=== PATIENT | male | born 1970 ===

== ENCOUNTER 2018-05-07 20:59 | Emergency (ER) | payer SELFPAY ==
[2018-05-07] MEDS ORDERED: SODIUM CHLORIDE 0.9% 500 ML IV ONE (21:36)
[2018-05-07] MEDS ORDERED: ONDANSETRON HCL IV 4 MG/2 ML VIAL IV ONE (21:36)
[2018-05-07] MEDS ORDERED: SUCRALFATE 1 G/10 ML UD PO ONE (21:37)
--- NOTE | 2018-05-07 21:43 | Emergency Department Record ---
History of Present Illness - General Chief Complaint: Abdominal Pain Stated Complaint: ABDOMINAL PAIN Time Seen by Provider: 05/07/18 21:34 Source: Patient Mode of Arrival: Ambulatory Limitations: No limitations - History of Present Illness Initial Comments: The patient is here due to a sharp stabbing epigastric AP for the past 2 hours. He did vomit after the onset of the pain. There has been no Cp, SOB, TAMICA, back pain or dysuria. The patient states he has had similar issues in the past and did go to the ER but was discharged and not told of any diagnosis. MD Complaint: Abdominal pain Onset/Timin -: Hour(s) Migration to: Epigastric Severity: Moderate Severity scale (1-10): 7 Associated Symptoms: Denies other symptoms - Related Data Allergies Allergy/AdvReac Type Severity Reaction Status Date / Time No Known Drug Allergies Allergy Verified 05/07/18 21:34 Travel Screening - Travel/Exposure Within Last 30 Days Have you traveled within the last 30 days?: No - Travel/Exposure Within Last Year Have you traveled outside the [place] in the last year?: No - Additonal Travel Details Have you been exposed to anyone with a communicable illness?: No - Travel Symptoms Symptom Screening: None Review of Systems Constitutional: Denies: Chills, Fever Eyes: Denies: Eye discharge ENT: Denies: Congestion Respiratory: Denies: Cough, Dyspnea Cardiovascular: Denies: Arrhythmia Endocrine: Denies: Fatigue Gastrointestinal: Reports: Abdominal pain, Nausea, Vomiting. Denies: Melena Genitourinary: Denies: Discharge Musculoskeletal: Denies: Arthralgia Past Medical History - SOCIAL HISTORY Smoking Status: Never smoker Alcohol Use: None Drug Use: None - RESPIRATORY Hx Respiratory Disorders: No - CARDIOVASCULAR Hx Cardio Disorders: No - NEURO Hx Neuro Disorders: No - GI Hx GI Disorders: No - Hx Genitourinary Disorders: No - ENDOCRINE Hx Endocrine Disorders: No - MUSCULOSKELETAL Hx Musculoskeletal Disorders: No - HEMATOLOGY/ONCOLOGY Hx Hematology/Oncology Disorders: No Family Medical History Any Significant Family History?: No Physical Exam - General General Appearance: Alert, Oriented x3, Cooperative, Mild distress - Head Head exam: Atraumatic, Normocephalic, Normal inspection - Eye Eye exam: Normal appearance, PERRL - ENT Throat exam: Normal inspection. negative: Tonsillar erythema, Tonsillar exudate - Neck Neck exam: Normal inspection, Full ROM. negative: Tenderness - Respiratory Respiratory exam: Normal lung sounds bilaterally. negative: Respiratory distress - Cardiovascular Cardiovascular Exam: Regular rate, Normal rhythm, Normal heart sounds - GI/Abdominal GI/Abdominal exam: Soft, Normal bowel sounds, Tenderness (There is mild to moderate epigastric tenderness to palpation.). negative: Distended, Guarding, Rebound, Rigid - Extremities Extremities exam: Normal inspection, Full ROM, Normal capillary refill. negative: Tenderness - Back Back exam: Reports: Normal inspection, Full ROM. Denies: Muscle spasm, Rash noted, Tenderness - Neurological Neurological exam: Alert. negative: Motor sensory deficit Course Vital Signs 05/07/18 21:13 Temperature 98.3 F Pulse Rate [ 53 L Pulse Ox Probe] Respiratory 20 Rate Blood Pressure 149/96 [Left Arm] Pulse Ox 100 - Reevaluation(s) Reevaluation #1: The patient is doing better at this time. His pain is improved now and I did discuss the lab results with him. I did explain the need for F/U due to the elevated LFT's and the urine infection. On exam his abdomen is soft but with significant RUQ tenderness. Due to the CT findings I do feel he needs an US of his GB and also a pelvic CT with contrast due to the bladder diverticulum. Due to no US available here at [facility] I did recommend transfer to a larger hospital and the patient did pick [facility]. 05/08/18 00:19 05/08/18 00:33 Reevaluation #2: Due to the CT report the patient will be transferred to the [facility] ED. I did discuss the case with Dr. Reaves in the ED and he did accept the patient in an ER to ER transfer. 05/08/18 00:42 Medical Decision Making - Data Complexity MDM Data: Labs Ordered and/or Reviewed, X-Ray Ordered and/or Reviewed, EKG Ordered and/or Reviewed - Lab Data Result diagrams: 05/07/18 21:55 05/07/18 21:55 - EKG Data -: EKG Interpreted by Me EKG: No Acute Changes (Sinus layla, O/W neg.) - Radiology Data Radiology results: Report reviewed (CT: Multiple large stones in the GB with wall thickening but no fluid. Also 5x7x6 urinary bladder thin walled fluid collection prob bladder diverticulum.) Disposition Disposition: Transfer Clinical Impression: Abdominal pain in male Disposition: Acute Care Hospital Transfer Transfer To: [facility] Reason For Transfer: Gen Surg. Accepting Physician: Jean Paul Time Discussed w/Accepting Physician: 00:44 Condition: (2) Stable Forms: Patient Portal Access Time of Disposition: 00:44 Quality - Quality Measures Quality Measures: N/A - Blood Pressure Screening View Details: Yes Does Patient Have Any of the Following: No Blood Pressure Classification: Pre-Hypertensive BP Reading Systolic Measurement: 132 Diastolic Measurement: 80 Screening for High Blood Pressure: < Pre-Hypertensive BP, F/U Documented > [ [id number]] Pre-Hypertensive Follow-up Interventions: Referral to alternative/primary care provider.
[2018-05-07 22:22] LABS: BASO % 0.4 % (0-6); HEMATOCRIT 40.7 % (42.0-52.0); HEMOGLOBIN 13.4 gm/dl (14.0-18.0); LYMPH % 13.7 % (16-45); MEAN CORPUSCULAR HEMOGLOBIN 28.6 pg (27-33); MEAN CORPUSCULAR HGB CONC 32.9 g/dl (32-36); MEAN PLATELET VOLUME 11.5 fl (7.4-10.4); MONO % 8.9 % (0-9); PLATELET COUNT 269 K/uL (130-400); RED BLOOD COUNT 4.68 M/uL (4.40-5.70); RED CELL DISTRIBUTION WIDTH 14.6 % (11.5-14.5); WHITE BLOOD COUNT W/O DIFF 9.4 K/uL (4.2-12.2)
[2018-05-07] MEDS ORDERED: MAGNESIUM HYDROXIDE/AL HYDROX 30 ML, LIDOCAINE VISC 2% 15ML 15 ML PO ONE ×2 (22:38)
[2018-05-07] MEDS ORDERED: HYDROMORPHONE HCL 2 MG/ML VIAL IVP ONE ×2 (22:41→23:50)
[2018-05-07 22:55] LABS: BLOOD UREA NITROGEN 13 mg/dL (6-20); CREATININE 0.7 mg/dL (0.7-1.2); EST GLOMERULAR FILTRATION RATE > 60 mL/min; GLUCOSE,RANDOM 127 mg/dL (74-109)
[2018-05-07 23:11] LABS: ALBUMIN 3.9 g/dL (4.0-5.0); ALT/SGPT 119 U/L (<41); AST/SGOT 82 U/L (10.0-50.0); BILIRUBIN,DIRECT 0.2 mg/dL (0-0.3); TOTAL PROTEIN 6.8 g/dL (6.6-8.7)
[2018-05-07 23:12] LABS: ALKALINE PHOSPHATASE 77 U/L (40-129)
[2018-05-07 23:26] LABS: LIPASE 30 U/L (13-60)
[2018-05-07 23:29] LABS: URINE BILIRUBIN NEGATIVE (NEGATIVE); URINE BLOOD TRACE-I (NEGATIVE); URINE COLOR YELLOW; URINE GLUCOSE (UA) NEGATIVE (NEGATIVE); URINE KETONE NEGATIVE (NEGATIVE); URINE LEUKOCYTE ESTERASE MODERATE (NEGATIVE); URINE NITRITE NEGATIVE (NEGATIVE)
[2018-05-07] MEDS ORDERED: POTASSIUM CHLORIDE 20 MEQ TABLET PO ONE (23:32)
[2018-05-07 23:36] LABS: AMPHETAMINE SCREEN URINE NOT DETECTED; BARBITURATE SCREEN URINE NOT DETECTED; BENZODIAZEPINE SCREEN URINE NOT DETECTED; COCAINE SCREEN URINE NOT DETECTED; METHADONE SCREEN URINE NOT DETECTED; METHAMPHETAMINE SCREEN NOT DETECTED; OPIATE SCREEN URINE NOT DETECTED; OXYCODONE SCREEN URINE NOT DETECTED; PHENCYCLIDINE SCREEN URINE NOT DETECTED; PROPOXYPHENE SCREEN URINE NOT DETECTED; THC SCREEN URINE NOT DETECTED; TRICYCLIC ANTIDEPRESSANT SCRN NOT DETECTED
[2018-05-07 23:37] LABS: URINE APPEARANCE CLOUDY
[2018-05-07 23:38] LABS: URINE RBC 0 - 2 (NONE SEEN)
[2018-05-07 23:39] LABS: URINE BACTERIA 2+; URINE EPITHELIAL CELLS NONE SEEN (FEW); URINE WBC 16 - 20 (0-2/hpf)
[2018-05-07] MEDS ORDERED: CIPROFLOXACIN HCL 500 MG TABLET PO ONE (23:43)
[2018-05-08] MEDS ORDERED: CEFTRIAXONE SODIUM 1 GM in 0.9 % SODIUM CHLORIDE 100ML 100 ML IVPB ONE (00:33)
--- NOTE | 2018-05-10 06:51 | CT SCAN REPORT ---
EXAM: CT SCAN ABDOMEN/PELVIS WO CONTRAST HISTORY: UPPER ABDOMINAL PAIN SINCE OCTOBER 2017. TECHNIQUE: Routine noncontrast CT images of the abdomen and pelvis were obtained. FINDINGS: Visualized lung bases are unremarkable. There is cholelithiasis. Suggestion of mild gallbladder wall thickening compatible with cholecystitis. Liver, pancreas, spleen, and adrenals have a normal noncontrast appearance. No renal or ureteral calculi or hydronephrosis. Small hiatal hernia. Colonic diverticulosis without CT evidence for diverticulitis. There is a small calcification within the bladder on the right posteriorly versus within the bladder wall. This could relate to a recently passed ureteral calculus. Note is made of mild prominence of the distal right ureter at the UVJ, which could relate to recently passed calculus or could relate to a ureterocele. There is a large diverticulum posteriorly on the left. The prostate is enlarged. Aorta normal in caliber. No abdominal or pelvic lymphadenopathy. Small bilateral fat-containing inguinal hernias, right greater than left. No acute osseous abnormality. Mild degenerative disc disease L5-S1. IMPRESSION: 1. CHOLELITHIASIS. THERE IS SUGGESTION OF GALLBLADDER WALL THICKENING AND POSSIBLE PERICHOLECYSTIC FLUID, WHICH MAY RELATE TO ACUTE OR CHRONIC CHOLECYSTITIS. PLEASE CORRELATE CLINICALLY. GALLBLADDER ULTRASOUND COULD BE PERFORMED FOR FURTHER ASSESSMENT. 2. THERE IS A SMALL CALCIFICATION WITHIN THE POSTERIOR ASPECT OF THE RIGHT BLADDER. THIS COULD RELATE TO A RECENTLY PASSED RIGHT URETERAL CALCULUS VERSUS A BLADDER WALL CALCIFICATION. 3. MILD PROMINENCE OF THE DISTAL RIGHT URETER AT THE LEVEL OF THE UVJ MAY RELATE TO RECENTLY PASSED CALCULUS VERSUS URETEROCELE. 4. LARGE LEFT POSTERIOR BLADDER DIVERTICULUM. 5. COLONIC DIVERTICULOSIS. 6. SMALL HIATAL HERNIA. JOB NUMBER: [id number] [facility]
== END 2018-05-08 01:07 | disposition short-term general hospital (02) ==
LOC: ER 20:59
DX: K80.20 Calculus of gallbladder without cholecystitis without obstruction (principal); R10.11 Right upper quadrant pain; R94.5 Abnormal results of liver function studies
CPT/HCPCS: 99284 ×2; 96376; 96374; 96375; 96361; 83690; 85025; 80076; 80048; 81001; 80305; 74176; 93005; 93010; J2405; J1170; J3490